=== PATIENT | male | born 1995 | race Caucasian/White ===

== ENCOUNTER 2019-08-02 04:50 | Emergency (ER) | payer SELFPAY ==
[~2019-08-02] VITALS: Ht 165.1 cm; Wt 69.9 kg
[2019-08-02 05:00] VITALS: BP 112/63
[2019-08-02] MEDS ORDERED: DICYCLOMINE HCL LIQUID 20 MG, ALUMINUM HYD/MAG/SIMETHICONE 30 ML, LIDOCAINE VISCOUS 2% ... PO ONE ×3 (05:05)
--- NOTE | 2019-08-02 05:07 | NUR ---
PT AMBULATED TO BED 12 WITH STEADY GAIT.
[2019-08-02] MEDS ORDERED: LIDOCAINE VISCOUS 2% 20 ML UDC ONE ×2 (05:08→05:10)
[2019-08-02] MEDS ORDERED: ALUMINUM HYD/MAG/SIMETHICONE 30 ML UDC ONE ×2 (05:08→05:10)
[2019-08-02] MEDS ORDERED: DICYCLOMINE HCL LIQUID 10 MG/5 ML UDC ONE ×2 (05:09→05:10)
--- NOTE | 2019-08-02 05:15 | NUR ---
24 YO M BIB SELF FOR C/C OF 6/10 EPIGASTRIC PAIN X2 HOURS. PT WAS LAYING DOWN WHEN THE PAIN BEGAN. PT STATES HE TOOK "A SPOONFUL" OF LIQUID TYLENOL, UNABLE TO SAY HOW MANY MG. LBM WAS 3 HOURS AGO, SOFT AND FORMED. BOWEL SOUNDS ACTIVE THROUGHOUT. DENIES ANY N/V/D, FEVER, COUGH, SOB. BED LOCKED AND IN LOWEST POSITION. SIDE RAILS X1. NKA NO MED HX NO RX
[2019-08-02 05:32] VITALS: BP 112/63
--- NOTE | 2019-08-02 05:32 | NUR ---
Patient discharged with v/s stable. Written and verbal after care instructions given and explained. Patient alert, oriented and verbalized understanding of instructions. Ambulatory with steady gait. All questions addressed prior to discharge. ID band removed. Patient advised to follow up with PMD. Rx of NORCO, MOTRIN, PRILOSEC given. Patient educated on indication of medication including possible reaction and side effects. Opportunity to ask questions provided and answered.
== END 2019-08-02 05:32 | disposition home or self-care (01) ==
LOC: MED 04:50
DX: R10.13 Epigastric pain (principal)
CPT/HCPCS: 81002; 99283